=== PATIENT | male | born 1955 | race Caucasian/White ===

== ENCOUNTER 2016-12-31 07:11 | Day surgery (SDC) | payer OTHER ==
[2016-12-27 10:28] VITALS: BMI 32.8
[~2016-12-31 07:11] MED LIST: LACTATED RINGERS 1,000 ML IV SCH
[2016-12-31 07:45] VITALS: TEMP 98.2
[2016-12-31 08:00] LABS: Glucose,Whole Blood 157 mg/dL (75-99)
[2016-12-31] MEDS ORDERED: PROPOFOL 10 MG/ML 20 ML VIAL IV ONE (08:27)
--- NOTE | 2016-12-31 08:45 | P.PCN ---
Date of Procedure: 12/31/16 Preoperative Diagnosis: Postoperative Diagnosis: Procedure(s) Performed: Procedure: Total colonoscopy. Preoperative diagnosis: Screening for neoplasia. Postoperative diagnosis: Sigmoid diverticulosis with no evidence of acute diverticulitis, strictures, polyps or cancer. Preparation: HalfLytely prep. Sedation: Was provided by anesthesia. Brief clinical history: The patient is a 61-year-old male with referred for this evaluation for screening for neoplasia age being his risk factor. He has no abdominal complaints, bleeding or anemia. No family history of colon cancer. This would be his first colonoscopy. Procedure: With the patient on his left lateral decubitus position and after informed consent and adequate sedation, the perianal area was inspected and it did not show any fissures or fistulas. There were no masses felt on digital rectal examination. The Olympus CFQ 160L video colonoscope was then inserted in the rectum in the usual fashion and advanced to the cecum. The mucosa appeared healthy. Multiple diverticular orifices were seen scattered in the sigmoid with no evidence of acute diverticulitis or strictures. No polyps or tumors were seen. I retroflexed endoscope in the rectum before the endoscope was withdrawn. The patient tolerated the procedure well. Plan: The patient was reassured. Discussed dietary measures. He will follow up with you as planned and I suggested repeat exam in 10 years. Implants: Indications for Procedure: Operative Findings: Description of Procedure:
[2016-12-31 08:48] VITALS: RESP 16
[2016-12-31 09:03] VITALS: BP 121/82; PULSE 82
== END 2016-12-31 09:35 | disposition home or self-care (01) ==
LOC: ORWHC2ENDO 07:11
DX: Z12.11 Encounter for screening for malignant neoplasm of colon (principal); K57.30 Diverticulosis of large intestine without perforation or abscess without bleeding; E11.9 Type 2 diabetes mellitus without complications; I10 Essential (primary) hypertension; Z79.84 Long term (current) use of oral hypoglycemic drugs; Z79.899 Other long term (current) drug therapy
CPT/HCPCS: J2704; G0121

== ENCOUNTER → 2017-06-10 | Outpatient (CLI) | payer BC ==
--- NOTE | 2017-06-14 23:21 | MR ---
EXAMINATION TYPE: MR knee RT wo con DATE OF EXAM: 06/10/2017 COMPARISON: 03/24/2014 HISTORY: Meniscus derangements, right knee TECHNIQUE: Multiplanar, multisequence imaging of the right knee is performed without IV contrast. FINDINGS: There is a moderate-sized knee joint effusion. There is minimal horizontal signal within the anterior and posterior horns of the lateral meniscus. There is horizontal signal through the posterior horn of the medial meniscus extending to the inferio r surface. The anterior cruciate ligament is intact. Posterior cruciate ligament shows some heterogen eous signal. There is hypertrophic spurring of the femoral and tibial condyles. There is medial displ acement of the medial meniscus. The collateral ligaments appear intact. There is patchy increased sig nal on the T2 images on both sides of the medial joint space. IMPRESSION: There is some degenerative signal change within the posterior cruciate ligament similar to old exam. 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 This has progressed significantly compared to old exam. There is a horizontal tear of the posterior horn medial meniscus. There is displacement of the medial meniscus. There is minima l horizontal degenerative signal change within the lateral meniscus. Large knee joint effusion. There is a large tendon tear on the suprapatellar tendon on the old exam t hat is not present on today's exam.
== END | disposition home or self-care (01) ==
LOC: RADMRIMAIN 08:53
PROVIDERS: ATTEND Nurse Practitioner
DX: S83.241A Other tear of medial meniscus, current injury, right knee, initial encounter (principal); M85.661 Other cyst of bone, right lower leg; M17.11 Unilateral primary osteoarthritis, right knee

== ENCOUNTER → 2024-09-30 | Outpatient (CLI) | payer MEDICARE, OTHER ==
--- NOTE | 2024-09-30 13:51 | US ---
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 Pt states swelling in calf and ankle x 2 weeks. No hx of DVT. Not on blood thinners, Pain TECHNIQUE: The lower extremity deep venous system is examined utilizing real time linear array sonog brian with graded compression, color doppler sonography, and spectral doppler. SIDE PERFORMED: Left FINDINGS: VESSELS IMAGED: Common Femoral Vein Deep Femoral Vein Greater Saphenous Vein * Femoral Vein Popliteal Vein Small Saphenous Vein * Proximal Calf Veins (* superficial vessels) Left Leg: No evidence for DVT, Color Doppler imaging shows patency of the vessels. Spectral waveform s are within normal limits. IMPRESSION: No evidence for DVT within the left lower extremity imaged from the groin to the upper calf. [facility], , 09/30/2024 1:48 PM
== END | disposition home or self-care (01) ==
LOC: RADUSWWP 13:08
PROVIDERS: ATTEND Family Medicine
DX: I82.402 Acute embolism and thrombosis of unspecified deep veins of left lower extremity (principal); Z96.652 Presence of left artificial knee joint